=== PATIENT | male | born 1940 | race Caucasian/White ===

== ENCOUNTER 2019-04-11 06:47 | Day surgery (SDC) | payer MEDICARE, BC, OTHER ==
[2019-04-08 14:30] VITALS: BMI 28.8
[2019-04-11] MEDS ORDERED: Levofloxacin 500 mg/D5W 100 ml Premix Bag ONE (07:46)
[2019-04-11 07:58] LABS: #Eosinphils 0.2 thou/uL (0.0-0.7); #Lymphocytes 1.4 thou/uL (1.20-3.40); #Monocytes 0.6 thou/uL (0.11-0.59); #Neutrophils 4.9 thou/uL (1.40-6.50); %Basophils 0.3 % (0.0-1.0); %Eosinophils 2.9 % (0.0-10.0); %Lymphocytes 19.4 % (21.0-51.0); %Monocytes 7.8 % (0.0-10.0); %Neutrophils 69.6 % (42.0-75.0); Hemoglobin 12.6 g/dL (14.0-18.0); Mean Corpuscular Hemoglobin 29.8 pg (27.0-31.0); Mean Corpuscular Volume 87.8 fL (78.0-98.0); Mean Platelet Volume 6.6 fL (7.4-10.4); Platelet Count 220 thou/uL (130-400); RBC Distribution Width 11.7 % (11.5-14.5); Red Blood Cell (RBC) Count 4.22 mill/uL (4.70-6.10); White Blood Cell (WBC) Count 7.1 thou/uL (4.8-10.8)
[2019-04-11 08:04] LABS: PTT 28.5 SEC (22.9-36.1); Prothrombin Time 12.8 SEC (12.0-14.7)
[2019-04-11 08:17] LABS: Anion Gap 12 mmol/L (10-20); BUN (Urea Nitrogen) 28 mg/dL (8.4-25.7); Calc. Creatinine Clearance 35 mL/min (70-130); Calcium 8.6 mg/dL (7.8-10.44); Carbon Dioxide 24 mmol/L (23-31); Chloride 108 mmol/L (98-107); Estimated GFR-MDRD 30; Glucose 95 mg/dL (83-110); Potassium 4.1 mmol/L (3.5-5.1); Sodium 140 mmol/L (136-145)
[2019-04-11] MEDS ORDERED: PROPOFOL 40 ML ONE (08:22)
[2019-04-11] MEDS ORDERED: Ondansetron PF 4 MG/2 ML Vial ONE (08:33)
[2019-04-11] MEDS ORDERED: Famotidine/PF 20 mg/2ml Vial ONE (08:33)
--- NOTE | 2019-04-11 14:44 | OP ---
DATE OF PROCEDURE: 04/11/2019 PREOPERATIVE DIAGNOSIS: Urinary retention. POSTOPERATIVE DIAGNOSIS: Urinary retention. PROCEDURES PERFORMED: Cystoscopy, placement of suprapubic tube, Lowsley technique. ANESTHETIC: Sedation with local. ESTIMATED BLOOD LOSS: Minimal. FINDINGS: There was no evidence of stricture disease. There was a small prostate. There were 2 ureteral orifices with clear efflux. There was no evidence of tumor, foreign body, or stone. DRAINS PLACED: A 22-Sammarinese 30 mL suprapubic tube and a 20-Sammarinese 20 mL Sauceda urethral catheter. DESCRIPTION OF PROCEDURE: After obtained written and verbal consent from the patient, after receiving IV Levaquin and having IV vancomycin started, he was taken to the operating suite. He was placed in a supine position on the treatment table. PlexiPulses were placed on his lower extremities and turned on. He was given a general anesthetic and oral obturator intubation. He was given sedation and not intubated. After the sedation had taken good effect, he was placed in the dorsal lithotomy position and lower abdomen was shaved and then he was sterilely prepped and draped for the above procedure. Cystoscopy was performed with a 22-Sammarinese sheath. This was well lubricated and passed under direct vision through the male urethra and into the urinary bladder with the aid of a 30-degree lens and a video camera and monitor. The bladder was filled and emptied number of times as it was examined both on the 30-degree lens and the 70-degree lens. We then went ahead and using a 30-degree lens, filled his bladder up with normal saline at a height of about 70 cm above his pubic symphysis. We did this until we could get no further urine in. We then infiltrated 2 to 3 fingerbreadths above the pubic symphysis. The skin and subcutaneous tissues with a spinal needle in 0.25% Marcaine without epinephrine. We did this until we could see the needle enter the anterior wall of the urinary bladder. As this looked to be in a good position, this was where we made a little skin cut and then removed the scope and passed the well-lubricated Lowsley through and then brought it to the undersurface of where a skin cut was, then cut down on it until it came out through this incision. We then brought in a 22-Sammarinese 30 mL catheter and fed a 2-0 silk through the eye of the catheter and then through the eye of the Chika and tied this and then used Chika to direct this into the bladder. We inflated the balloon under direct vision and it was draining well. We did not see any significant bleeding. The instruments were removed and then the urethral Sauceda catheter was placed also, both these worked up to drainage bags. We secured SP tube at the skin site with a 2-0 silk tie and a dressing was placed. He was taken out of the dorsal lithotomy position, awakened, extubated, and taken by stretcher to the recovery room. Job ID: [id number]
== END 2019-04-11 12:30 | disposition home or self-care (01) ==
LOC: SDC 06:47
PROVIDERS: ATTEND Urology
PROC: 0T9B30Z Drainage of Bladder with Drainage Device, Percutaneous Approach (ICD-10-PCS; principal; 2019-04-11)
DX: R33.8 Other retention of urine (principal); I11.9 Hypertensive heart disease without heart failure; I48.91 Unspecified atrial fibrillation; G47.30 Sleep apnea, unspecified; G30.9 Alzheimer's disease, unspecified; F02.80 Dementia in other diseases classified elsewhere, unspecified severity, without behavioral disturbance, psychotic disturbance, mood disturbance, and anxiety; K21.9 Gastro-esophageal reflux disease without esophagitis; Z87.891 Personal history of nicotine dependence; Z79.01 Long term (current) use of anticoagulants; Z79.899 Other long term (current) drug therapy; Z88.0 Allergy status to penicillin; Z99.89 Dependence on other enabling machines and devices
CPT/HCPCS: 36415; 80048; 85025; 85610; 85730; J0131; J1956; J2405; J2704; J3370; S0028

== ENCOUNTER 2020-05-17 10:00 | Outpatient (CLI) | payer MEDICARE, BC | END 2020-05-17 10:01 | disposition home or self-care (01) | LOC: DTY/OP 10:00 | PROVIDERS: ATTEND Internal Medicine | DX: I12.9 Hypertensive chronic kidney disease with stage 1 through stage 4 chronic kidney disease, or unspecified chronic kidney disease (principal); N18.4 Chronic kidney disease, stage 4 (severe) | CPT/HCPCS: 97802 ==

== ENCOUNTER 2025-02-17 19:20 | Emergency (ER) | payer MEDICARE, OTHER | END 2025-02-17 23:10 | disposition home or self-care (01) | LOC: ERS 19:20 | DX: T83.018A Breakdown (mechanical) of other urinary catheter, initial encounter (principal) | CPT/HCPCS: 99283 ==